=== PATIENT | female | born 1955 | race Caucasian/White ===

== ENCOUNTER 2016-12-27 21:19 | Emergency (ER) | payer BC ==
[~2016-12-27] VITALS: Ht 172.7 cm; Wt 85.3 kg
[~2016-12-27 21:19] MED LIST: BENADRYL25 MG PO; NEURONTIN100 MG PO; PREDNISONE5 MG PO; PRILOSEC20 MG PO; RESTASIS1 DROP OD; WELLBUTRIN100 MG NG; ZOVIRAX400 MG PO
[2016-12-27] MEDS ORDERED: ZANTAC300 MG PO (21:44)
[2016-12-27] MEDS ORDERED: MULTIVITAMINS1 EAC7 PO (21:44)
[2016-12-27] MEDS ORDERED: VITAMIN D2000 UNIT PO (21:45)
[2016-12-27] MEDS ORDERED: LEVOTHYROXINE0.5 GM MISC (21:46)
== END 2016-12-27 23:36 | disposition home or self-care (01) ==
LOC: ED 21:19
DX: R20.2 Paresthesia of skin (principal); K21.9 Gastro-esophageal reflux disease without esophagitis; Z90.710 Acquired absence of both cervix and uterus; Z98.890 Other specified postprocedural states; F41.9 Anxiety disorder, unspecified; Z79.899 Other long term (current) drug therapy
CPT/HCPCS: 80053; 85025; 99283

== ENCOUNTER 2018-05-23 21:53 | Emergency (ER) | payer OTHER ==
[~2018-05-23] VITALS: Ht 172.7 cm; Wt 88.9 kg
--- OUTSIDE RECORDS SUMMARY | ~2018-05-23 | XMS | Clinical Summary ---
Demographics + + + | Address | [address] | | | [place] [address] | + + + | Home Phone | | + + + | Preferred Language | Unknown | + + + | Marital Status | | + + + | Hoahaoism Affiliation | Unknown | + + + | Race | White | + + + | Ethnic Group | Not or | + + + Author + + + | Author | [facility] | + + + | Organization | [facility] | + + + | Address | Unknown | + + + | Phone | Unavailable | + + + Support + + + + + | Name | Relationship | Address | Phone | + + + + + | BONNY HELMS | ECON | [address] | | | | | [place] | | | | | [address] | | + + + + + Care Team Providers + +------+ + | Care Orthopaedic Nurse Name | Role | Phone | + +------+ + | Luke Guadarrama MD | PP | | + +------+ + Source Comments CORAZON is fully live on both [facility] and [facility] Allergies Not on File Current Medications + + +-------+---------+------+------+-------+ | Prescription | Sig. | Disp. | Refills | Star | End | Statu | | | | | | t | Date | s | | | | | | Date | | | + + +-------+---------+------+------+-------+ | OMEPRAZOLE | Take by mouth. | | | | | Activ | | (PRILOSEC ORAL) | | | | | | e | + + +-------+---------+------+------+-------+ | MULTIVITAMIN ORAL | Take by mouth. | | | | | Activ | | | | | | | | e | + + +-------+---------+------+------+-------+ | | 1 drop as needed. | | | | | Activ | | carboxymethylcellulo | | | | | | e | | se 0.5 % ophthalmic | | | | | | | | dropperette | | | | | | | + + +-------+---------+------+------+-------+ | doxycycline | Take 100 mg by mouth | | | | | Activ | | hyclate 100 mg oral | every twelve hours. 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 | + + + Family History + + +------+ + | Medical History | Relation | Name | Comments | + + +------+ + | Amblyopia | Brother | | | + + +------+ + | Glaucoma | Father | | | + + +------+ + | Macular degeneration | Mother | | | + + +------+ + | Retinal detachment | Son | | | + + +------+ + | Glasses | | | | + + +------+ + + +------+--------+ + | Relation | Name | Status | Comments | + +------+--------+ + | Brother | | | | + +------+--------+ + | Father | | | | + +------+--------+ + | Mother | | | | + +------+--------+ + | Son | | | | + +------+--------+ + Social History + +-------+ +--------+------+ | Tobacco Use | Types | Packs/Day | Years | Date | | | | | Used | | + +-------+ +--------+------+ | Former Smoker | | | | | + +-------+ +--------+------+ + + + | Sex Assigned at | Date Recorded | | | | + + + | Not on file | | + + + Plan of Treatment + + + + + | Health Maintenance | Due Date | Last Done | Comments | + + + + + | Influenza (Flu) | | | | | vaccination (#1) | 8 | | | + + + + + Results Not on filefrom Last 3 Months Insurance +-------+--------+ +------+ + + | Payer | Benefi | Subscriber | Type | Phone | Address | | | t Plan | ID | | | | | | / | | | | | | | Group | | | | | +-------+--------+ +------+ + + | MODA | MODA | xxxxxxxxx | PPO | [phone]- | [address] [address] | | | [place] | | | [phone] | [place] [address] | | | [place] | | | | | +-------+--------+ +------+ + + + +--------+ +--------+ + + | Guarantor Name | Accoun | Relation to | Date | Phone | Billing Address | | | t Type | Patient | of | | | | | | | | | | + +--------+ +--------+ + + | NORA HELMS | Person | Self [birth year] | Home: | [address] | | | al/Fam | | 1956 | [phone] | [place] [address] | | | katja | | | [phone] | | + +--------+ +--------+ + +"
--- OUTSIDE RECORDS SUMMARY | ~2018-05-23 | XMS | Clinical Summary ---
Demographics + + + | Address | [address] | | | [place] [address] | + + + | Home Phone | | + + + | Preferred Language | Unknown | + + + | Marital Status | | + + + | Sabianism Affiliation | Unknown | + + + | Race | Unknown | + + + | Ethnic Group | Unknown | + + + Author + + + | Author | [facility] | | | and [place] | + + + | Organization | [facility] | | | and [place] | + + + | Address | Unknown | + + + | Phone | Unavailable | + + + Care Team Providers + +------+ + | Care Gambreler Helper Name | Role | Phone | + +------+ + PP | Unavailable | + +------+ + Allergies No Known Allergies Medications + + + +---------+------+------+-------+ | Medication | Sig | Dispensed | Refills | Star | End | Statu | | | | | | t | Date | s | | | | | | Date | | | + + + +---------+------+------+-------+ | Cholecalciferol | Take 2,000 Units by | | 0 | 09/1 | | Activ | | (VITAMIN D3) 2000 | mouth Daily. | | | 4/20 | | e | | UNITS CAPS | | | | 12 | | | + + + +---------+------+------+-------+ | diphenhydrAMINE | Take 2 capsules by | | 0 | 09/1 | | Activ | | (BENADRYL ALLERGY) | mouth 4 to 5 times a | | | 4/20 | | e | | 25 MG capsule | week | | | 12 | | | + + + +---------+------+------+-------+ | omeprazole | Take 3 capsules once | | 0 | 09/1 | | Activ | | (PRILOSEC) 20 mg | daily | | | 4/20 | | e | | capsule | | | | 12 | | | + + + +---------+------+------+-------+ | Alum Hydroxide-Mag | CHEW Chew 2 tablets | | 0 | 09/1 | | Activ | | Carbonate (GAVISCON | as needed | | | 4/20 | | e | | PO) | | | | 12 | | | + + + +---------+------+------+-------+ Active Problems + + + | Problem | Noted Date | + + + | GASTROESOPHAGEAL REFLUX DISEASE | | + + + | Chest pain | | + + + + + | Overview: JUNE [id number] Decision | + + +---------+---+ | ANXIETY | | +---------+---+ Social History + +-------+ +--------+------+ | Tobacco [...] | + + Last Filed Vital Signs + + + + | Vital Sign | Reading | Time Taken | + + + + | Blood Pressure | 118/78 | 05/25/2011 0000 PDT | + + + + | Pulse | - | - | + + + + | Temperature | - | - | + + + + | Respiratory Rate | - | - | + + + + | Oxygen Saturation | - | - | + + + + | Inhaled Oxygen | - | - | | Concentration | | | + + + + | Weight | - | - | + + + + | Height | 172.7 cm (5' 8") | 05/25/2011 0000 PDT | + + + + | Body Mass Index | - | - | + + + + Plan of Treatment + + + + + | Health Maintenance | Due Date | Last Done | Comments | + + + + + | Vaccine: | | | | | Dtap/Tdap/Td (1 - | 3 | | | | Tdap) | | | | + + + + + | Cervical Cancer | | | | | Screening (Pap) | 4 | | | + + + + + | Vaccine: Zoster (1 | | | | | of 2) | 4 | | | + + + + + | Vaccine: Influenza | | | | | (Season Ended) | 9 | | | + + + + + Results Not on filefrom Last 3 Months
--- OUTSIDE RECORDS SUMMARY | ~2018-05-23 | XMS | Clinical Summary ---
Demographics + + + | Address | [address] | | | [place] [address] | + + + | Home Phone | | + + + | Preferred Language | Unknown | + + + | Marital Status | | + + + | Pentecostal Affiliation | Unknown | + + + | Race | White | + + + | Ethnic Group | Not or | + + + Author + + + | Author | [facility] | + + + | Organization | [facility] | + + + | Address | Unknown | + + + | Phone | Unavailable | + + + Support + + + + + | Name | Relationship | Address | Phone | + + + + + | BONNY HELMS | ECON | [address] | | | | | [place] | | | | | [address] | | + + + + + Care Team Providers + +------+ + | Care Bus Greaser Name | Role | Phone | + +------+ + | Luke Guadarrama MD | PP | | + +------+ + Source Comments CORAZON is fully live on both [facility] and [facility] InPatient.[facility] Allergies Not on File Current Medications + [...] [phone] | PPO | +1- | [address] [address] | | | [place] | | | [phone] | [place] [address] | | | [place] | | | [...] | 1956 | [phone] | [place] [address] | | | katja | | | [phone] | | + +--------+ +--------+ + +"
--- OUTSIDE RECORDS SUMMARY | ~2018-05-23 | XMS | Clinical Summary ---
Demographics + + + | Address | [address] | | | [place] [address] | + + + | Home Phone | | + + + | Preferred Language | Unknown | + + + | Marital Status | | + + + | Judaism Affiliation | Unknown | + + + | Race | Unknown | + + + | Ethnic Group | Unknown | + + + Author + + + | Author | [facility] | | | and [place] | + + + | Organization | [facility] | | | and [place] | + + + | Address | Unknown | + + + | Phone | Unavailable | + + + Care Team Providers + +------+ + | Care Eyeglass Frame Truer Name | Role | Phone | + [...] + + + + | Overview: JUNE [id number] Decision | + + +---------+---+ | ANXIETY [...]
[~2018-05-23 21:53] MED LIST changes: +CALCIUM + VITA1 EAC2 PO; +LEVOTHYROXINE0.5 GM MISC; +LEVOTHYROXINE50 MCG PO; +MULTIVITAMINS1 EAC7 PO; +NEXIUM20 MG PO; +VITAMIN D2000 UNIT PO; +ZANTAC300 MG PO
[2018-05-23] MEDS ORDERED: DEXILANT60 MG PO (22:06)
== END 2018-05-23 23:38 | disposition home or self-care (01) ==
LOC: ED 21:53
DX: S80.02XA Contusion of left knee, initial encounter (principal); W01.198A Fall on same level from slipping, tripping and stumbling with subsequent striking against other object, initial encounter; K21.9 Gastro-esophageal reflux disease without esophagitis; F41.9 Anxiety disorder, unspecified; Z79.899 Other long term (current) drug therapy
CPT/HCPCS: 99283

== ENCOUNTER 2019-09-08 10:23 | Emergency (ER) | payer MEDICARE, OTHER ==
[~2019-09-08] VITALS: Ht 172.7 cm; Wt 88.9 kg
--- OUTSIDE RECORDS SUMMARY | ~2019-09-08 | XMS | Clinical Summary ---
Demographics + + + | Address | [address] | | | [place] [address] | + + + | Home Phone | | + + + | Preferred Language | Unknown | + + + | Marital Status | | + + + | Quaker Affiliation | Unknown | + + + | Race | White | + + + | Ethnic Group | Not or | + + + Author + + + | Author | [facility] | + + + | Organization | [facility] | + + + | Address | Unknown | + + + | Phone | Unavailable | + + + Support + + + + + | Name | Relationship | Address | Phone | + + + + + | Isidro Barth | ECON | [address] | | | | | [place] | | | | | [address] | | + + + + + Care Team Providers + +------+ + | Care Front End Software Engineer Name | Role | Phone | + +------+ + | Luke Guadarrama MD | PCP | | + +------+ + Source Comments CORAZON is fully live on both [facility] and [facility] InPatient.[facility] Allergies Not on File Medications + + + +---------+------+------+-------+ | Medication | Sig | Dispensed | Refills | Star | End | Statu | | | | | | t | Date | s | | | | | | Date | | | + + + +---------+------+------+-------+ | OMEPRAZOLE | Take by mouth. | | 0 | | | Activ | | (PRILOSEC ORAL) | | | | | | e | + + + +---------+------+------+-------+ | MULTIVITAMIN ORAL | Take by mouth. | | 0 | | | Activ | | | | | | | | e | + + + +---------+------+------+-------+ | | 1 drop as needed. | | 0 | | | Activ | | carboxymethylcellulo | | | | | | e | | se 0.5 % ophthalmic | | | | | | | | dropperette | | | | | | | + + + +---------+------+------+-------+ | doxycycline | Take 100 mg by mouth | | 0 | | | Activ | | hyclate 100 mg oral | every twelve hours. | | | | | e | | tablet | | | | | | | + + + +---------+------+------+-------+ Active Problems + + + | Problem [...] | | + +-------+ +--------+------+ + + +---------+ + | Alcohol Use | Drinks/Week | oz/Week | Comments | + + +---------+ + | Not Asked | | | | + + +---------+ + + + + | Sex Assigned at | Date Recorded | | | | + + + | Not on file | | + + + + + + + | Job Start Date | Occupation | Industry | + + + + | Not on file | Not on file | Not on file | + + + + + + + + | Travel History | Travel Start | Travel End | + + + + + + | No recent travel history available. | + + Last Filed Vital Signs Not on file Plan of Treatment + + + + + | Health Maintenance | Due Date | Last Done | Comments | + + + + + | Pneumococcal | | | | | vaccination (1 of 2 | 9 | | | | - PCV13) | | | | + + + + + | Influenza (Flu) | | | | | vaccination (#1) | 9 | | | + + + + + Results Not on filefrom Last 3 Months Insurance +-------+--------+ +--------+ + +------+ | Payer | Benefi | Subscriber | Effect | Phone | Address | Type | | | t Plan | ID | heidi | | | | | | / | | Dates | | | | | | Group | | | | | | +-------+--------+ +--------+ + +------+ | MODA | MODA | xxxxxxxxx | 02/13/19 | [phone] | [address] | PPO | | | [place] | | 14-Pre | 4 | [address] | | | | [place] | | sent | | [place], | | | | | | | | [place] [address] | | +-------+--------+ +--------+ + +------+ + +--------+ +--------+ + + | Guarantor Name | Accoun | Relation to | Date | Phone | Billing Address | | | t Type | Patient | of | | | | | | | | | | + +--------+ +--------+ + + | Nora Barth | Person | Self | [birth year] | [address] | | | al/Fam | | 1956 | [phone] | [place] [address] | | | katja | | | 9 (Home) | | + +--------+ +--------+ + +"
--- OUTSIDE RECORDS SUMMARY | ~2019-09-08 | XMS | Encounter Summary ---
Demographics + + + | Address | [address] | | | [place] [address] | + + + | Home Phone | | + + + | Preferred Language | Unknown | + + + | Marital Status | | + + + | Episcopalian Affiliation | Unknown | + + + | Race | White | + + + | Ethnic Group | Not or | + + + Author + + + | Author | [facility] | + + + | Organization | [facility] | + + + | Address | Unknown | + + + | Phone | Unavailable | + + + Support + + + + + | Name | Relationship | Address | Phone | + + + + + | Isidro Barth | ECON | [address] | | | | | [place] | | | | | [address] | | + + + + + Care Team Providers + +------+ + | Care Punch Operator Name | Role | Phone | + +------+ + | Luke Guadarrama MD | PCP | | + +------+ + Reason for Visit + + + | Reason | Comments | + + + | Comprehensive eye | | | examination | | + + + Encounter Details +--------+---------+ + + + | Date | Type | Department | Care Team | Description | +--------+---------+ + + + | 03/06/ | Office | [facility] | Chas Cat | Ocular rosacea | | 2013 | Visit | [facility]/Ophthalmol | MD Farzana | (Primary Dx) | | | | [facility] at [facility] [address] | | | | | | [address] [facility] | | | | | | [facility] and Healing, | | | | | | Building | | | | | | Floor [place], [place] | | | | | | [address] | | | | | | [phone] | | | +--------+---------+ + + + Social History + +-------+ +--------+------+ | [...] recent travel history available. | + + documented as of this encounter Progress Notes Luke Blank MD - 03/06/2013 11:02 AM PSTAttending Physician Statement: I reviewed chart notes under general supervision of resident, but did not personally examine this patient. Cosigning only. Chas Leahy MD - 03/06/2013 9:54 AM PST COMPREHENSIVE OPHTHALMOLOGY PROGRESS NOTE 03/06/2013 HPI: 57 y.o. year old female from [place] : Patient presents with: Comprehensive eye examination Eyes are red and irritated. Had tear duct plugs inserted last week by [place] doctor. Eyes aren't burning now, but are still red. Had red eyes after having plugs inserted. Use s Refresh eye drops. Has had 2 subconjunctival hemes in the past. Has had some small ones in the corners since November or so. Has had once in each eye after insertion of the plugs. Has been using a tobramycin and dexamethasone drop OU for the past week or so, once to [facility] e a day. Tobacco use: reports that she has quit smoking. She does not have any smokeless tobacco hi story on file. Primary Care Provider: Carrol Guadarrama MD Past ocular history: No specialty comments on file. Family ocular history: family history includes Amblyopia in her brother; Glaucoma in her father; Macular degenerat ion in her mother; and Retinal detachment in her son. See scanned intake form for full Family ocular and medical history. Allergies: has no allergies on file. Medications: Current Outpatient Prescriptions (Ophthalmic Medications) Medication Sig carboxymethylcellulose 1 drop as needed. Current Outpatient Prescriptions (Other) Medication Sig doxycycline hyclate Take 100 mg by mouth every twelve hours. MULTIVITAMIN ORAL Take by mouth. OMEPRAZOLE (PRILOSEC ORAL) Take by mouth. Medical history/PMH/Review of systems: There is no problem list on file for this patient. Past Medical History Diagnosis Date GERD (gastroesophageal reflux disease) Scleritis History of blood transfusion Hiatal hernia with gangrene UTI (lower urinary tract infection) H/O subconjunctival hemorrhage has past surgical history that includes caesarean section; hysterectomy; and tonsillectomy . Reviewed systems for: fever, wt. loss, ENT, cardiovascular, pulmonary, GI, urinary, neurolo gic, endocrine, bleeding/blood disorders, AIDS/HIV, cancer/tumors, arthritis - all were nega tive except as noted above. EXAMINATION: Base Exam Visual Acuity Right Left Dist cc 20/20-3 20/20-1 Method: Snellen - Linear Tonometry Right Left Pressure 24 24 Method: Applanation Time: 10:07 AM Dilation Both eyes: 1.0% Mydriacyl @ 10:10 AM Pupils Pupils Right PERRL Left PERRL Visual Prakash Left Right Result Full Full Extraocular Movement Right Left Result Full Full Slit Lamp and Fundus Exam External Exam Right Left External Normal Normal Slit Lamp Exam Right Left Lids/Lashes MGD, scurf, telang MGD, scurf, telang Conjunctiva/Sclera Temporal and nasal ping. No plugs seen Temporal and nasal ping, no plug s seen. One tortuous vessel nasally Cornea All layers clear All layers clear Anterior Chamber Deep and quiet Deep and quiet Iris Normal Normal Lens Clear Clear Vitreous Normal Normal Fundus Exam Right Left Disc Normal; full but crisp rim Normal; full but crisp rim C/D Ratio 0.1 0.1 Macula Normal, few tiny drusen Normal, few tiny drusen Vessels Normal Normal Periphery Normal, clump of pigment along a temporal vessel. Scattered small drusen Normal, scattered small drusen ITEVIN, performed, reviewed or revised the above history, medications, allergies, as well as performed elements noted in the Base Ophthalmology Exam, such as visual acuity, pupils, EOMs, CVF and IOP. See [facility] ophthalmology module for exam information. Impression: Ocular rosacea, OU. History of dry eye, irritation, redness. Recently had plugs placed wh ich I do not see today. -Currently managed with artificial tears; she has also used some tobradex drops intermitten tly -Intermittently becomes very red, annetta nasally over the pinguecula Pinguecula, OU. Intermittently inflamed, she is concerned by the redness -Reassurance as to the benign nature of these -Continue tears Mildly elevated IOP today -No suspicious discs -Possibly slightly elevated due to recent steroid use -Unsure what her baseline IOP is Plan: Hot compresses BID to QID preservative-free artificial tears 4-6 times daily Could ultimately try doxy if no improvement Discontinue Tobradex Follow up 4-6 weeks to check IOP, non-dilated Chas Cat MD Ophthalmology Resident [facility] Attending of record for this encounter is Dr. Luke Blank MD documented in this encounter Plan of Treatment Not on filedocumented as of this encounter Visit Diagnoses + + | Diagnosis | + + | Ocular rosacea - Primary Rosacea | + + documented in this encounter"
--- OUTSIDE RECORDS SUMMARY | ~2019-09-08 | XMS | Encounter Summary ---
Demographics + + + | Address | [address] | | | [place] [address] | + + + | Home Phone | | + + + | Preferred Language | Unknown | + + + | Marital Status | | + + + | Temple Affiliation | Unknown | + + + | Race | Unknown | + + + | Ethnic Group | Unknown | + + + Author + + + | Author | [facility] | | | and [place] | + + + | Organization | [facility] | | | and [place] | + + + | Address | Unknown | + + + | Phone | Unavailable | + + + Care Team Providers + +------+ + | Care Lecturer Of Portuguese Name | Role | Phone | + +------+ + PCP | Unavailable | + +------+ + Encounter Details +--------+ + + + + | Date | Type | Department | Care Team | Description | +--------+ + + + + | 05/13/ | Imaging | [facility] | Provider, | | | 2020 | Exam | [facility] | MD [address] | | | | | IMAGING [address] | [address] | | | | | [address] | [place] [address] | | | | | [place] [address] | | | | | | [phone] | | | +--------+ + + + [...] Not on filedocumented as of this encounter Procedures + +--------+ + + + | Procedure Name | Priori | Date/Time | Associated Diagnosis | Comments | | | ty | | | | + +--------+ + + + | DORENE DIGITAL | Routin | 03/21/2018 | | Results for this | | SCREENING BILATERAL | e | 12:00 AM | | procedure are in the | | | | PST | | results section. | + +--------+ + + + documented in this encounter Results DORENE Digital Screening Bilateral (03/21/2018 12:00 AM PST) + + | Specimen | + + | | + + + + + | Narrative | Performed At | + + + | External films for comparison only | [facility] | | | | | No results will be in the chart. | | + + + + +---------+ + + | Performing | Address | City/State/Zipcode | Phone Number | | Organization | | | | + +---------+ + + | [facility] | | | | + +---------+ + + documented in this encounter Visit Diagnoses Not on filedocumented in this encounter"
--- OUTSIDE RECORDS SUMMARY | ~2019-09-08 | XMS | Encounter Summary ---
Demographics + + + | Address | [address] | | | [place] [address] | + + + | Home Phone | | + + + | Preferred Language | Unknown | + + + | Marital Status | | + + + | Anglican Affiliation | Unknown | + + + | Race | Unknown | + + + | Ethnic Group | Unknown | + + + Author + + + | Author | [facility] | | | and [place] | + + + | Organization | [facility] | | | and [place] | + + + | Address | Unknown | + + + | Phone | Unavailable | + + + Care Team Providers + +------+ + | Care Chin Strap Sewer Name | Role | Phone | + [...] | | | | [address] | [place] [address] | | | | | [place] [address] | | | | | | [phone] | | | +--------+ + + + [...] + | DORENE DIGITAL | Routin | 03/13/2017 | | Results for this | | SCREENING BILATERAL | e | 12:00 AM | | procedure are in the | | | | PST | | results section. | + +--------+ + + + documented in this encounter Results DOERNE Digital Screening Bilateral (03/13/2017 12:00 AM PST) + + | Specimen [...]
--- OUTSIDE RECORDS SUMMARY | ~2019-09-08 | XMS | Encounter Summary ---
Demographics + + + | Address | [address] | | | [place] [address] | + + + | Home Phone | | + + + | Preferred Language | Unknown | + + + | Marital Status | | + + + | Baptist Affiliation | Unknown | + + + | Race | Unknown | + + + | Ethnic Group | Unknown | + + + Author + + + | Author | [facility] | | | and [place] | + + + | Organization | [facility] | | | and [place] | + + + | Address | Unknown | + + + | Phone | Unavailable | + + + Care Team Providers + +------+ + | Care Scrubbing Machine Operator Name | Role | Phone | + +------+ + PCP | Unavailable | + +------+ + Encounter Details +--------+ + + + + | Date | Type | Department | Care Team | Description | +--------+ + + + + | 06/19/ | Hospital | [facility] | Paul Poole, | | | 1997 - | Encounter | [facility] | MD [address] [place] [address] | | | | | [facility] [address] | [address] | | | 06/22/ | | Merrick Dejesus, | [place] [address] | | | 1997 | | [place] [address] | [phone] | | | | | [phone] | | | +--------+ + + + [...]
--- OUTSIDE RECORDS SUMMARY | ~2019-09-08 | XMS | Clinical Summary ---
Demographics + + + | Address | [address] | | | [place] [address] | + + + | Home Phone | | + + + | Preferred Language | Unknown | + + + | Marital Status | | + + + | Confucianism Affiliation | Unknown | + + + | Race | White | + + + | Ethnic Group | Not or | + + + Author + + + | Author | [facility] | + + + | Organization | [facility] | + + + | Address | Unknown | + + + | Phone | Unavailable | + + + Support + + + + + | Name | Relationship | Address | Phone | + + + + + | Isidro Barth | ECON | [address] | | | | | [place] | | | | | [address] | | + + + + + Care Team Providers + +------+ + | Care Application Developer Name | Role | Phone | + +------+ + | Luke Guadarrama MD | PCP | | + +------+ + Source Comments CORAZON is fully live on both [facility] and [facility] InPatient.[facility] Allergies Not on File Medications + [...] [place] | | [address] | [address] | [address] | | | | [place] | | sent | | [place], | | | | | | | | [place] [address] | | +-------+--------+ +--------+ + +------+ + [...] | 1956 | [phone] | [place] [address] | | | katja | | | 9 (Home) | | + +--------+ +--------+ + +"
--- OUTSIDE RECORDS SUMMARY | ~2019-09-08 | XMS | Encounter Summary ---
Demographics + + + | Address | [address] | | | [place] [address] | + + + | Home Phone | | + + + | Preferred Language | Unknown | + + + | Marital Status | | + + + | Taoist Affiliation | Unknown | + + + | Race | Unknown | + + + | Ethnic Group | Unknown | + + + Author + + + | Author | [facility] | | | and [place] | + + + | Organization | [facility] | | | and [place] | + + + | Address | Unknown | + + + | Phone | Unavailable | + + + Care Team Providers + +------+ + | Care Clothing Sales Assistant Name | Role | Phone | + +------+ + PCP | Unavailable | + +------+ + Encounter Details +--------+ + + + + | Date | Type | Department | Care Team | Description | +--------+ + + + + | 10/26/ | Abstract | [facility] | [facility] | | | 2011 | | Conversion Location | SR | | | | | [address] [facility] [address] | | | | | | [place], [place] | | | | | | [address] | | | | | | [phone] | | | +--------+ + + + [...] + + documented as of this encounter Last Filed Vital Signs + + + + + | Vital Sign | Reading | Time Taken | Comments | + + + + + | Blood Pressure | 118/78 | 05/25/2011 12:00 AM | | | | | PDT | | + + + + + | Pulse | - | - | | + + + + + | Temperature | - | - | | + + + + + | Respiratory Rate | - | - | | + + + + + | Oxygen Saturation | - | - | | + + + + + | Inhaled Oxygen | - | - | | | Concentration | | | | + + + + + | Weight | - | - | | + + + + + | Height | 172.7 cm (5' 8") | 05/25/2011 12:00 AM | | | | | PDT | | + + + + + | Body Mass Index | - | - | | + + + + + documented in this encounter Plan of Treatment Not on filedocumented as of this encounter Visit Diagnoses Not on filedocumented in this encounter
--- OUTSIDE RECORDS SUMMARY | ~2019-09-08 | XMS | Encounter Summary ---
Demographics + + + | Address | [address] | | | [place] [address] | + + + | Home Phone | | + + + | Preferred Language | Unknown | + + + | Marital Status | | + + + | Sabianism Affiliation | Unknown | + + + | Race | Unknown | + + + | Ethnic Group | Unknown | + + + Author + + + | Author | [facility] | | | and [place] | + + + | Organization | [facility] | | | and [place] | + + + | Address | Unknown | + + + | Phone | Unavailable | + + + Care Team Providers + +------+ + | Care Paper Products Supervisor Name | Role | Phone | + +------+ + PCP | Unavailable | + +------+ + Encounter Details +--------+ + + + + | Date | Type | Department | Care Team | Description | +--------+ + + + + | 03/27/ | Hospital | [facility] | | | | 2006 | Encounter | MED CTR EMERGENCY | | | | | | CENTER [address] | | | | | | [place] | | | | | | [address] | | | | | | [phone] | | | +--------+ + + + [...]
--- OUTSIDE RECORDS SUMMARY | ~2019-09-08 | XMS | Encounter Summary ---
Demographics + + + | Address | [address] | | | [place] [address] | + + + | Home Phone | | + + + | Preferred Language | Unknown | + + + | Marital Status | | + + + | Holiness Affiliation | Unknown | + + + | Race | White | + + + | Ethnic Group | Not or | + + + Author + + + | Author | [facility] | + + + | Organization | [facility] | + + + | Address | Unknown | + + + | Phone | Unavailable | + + + Support + + + + + | Name | Relationship | Address | Phone | + + + + + | Isidro Barth | ECON | [address] | | | | | [place] | | | | | [address] | | + + + + + Care Team Providers + +------+ + | Care Tip Printer Name | Role | Phone | + [...] rosacea | | 2013 | Visit | [place]/Ophthalmol | MD Farzana | (Primary Dx) | | | | blakey at [facility] [address] | | | | | | [address] [facility] for | | | | | | Health and Healing, | | | | | | Building | | | | | | Floor [place], [place] | | | | | | [address] | | | | | | [phone] | | | +--------+---------+ + + + [...] HPI: 57 y.o. year old female from [place] : Patient presents with: Comprehensive eye examination Eyes are red and irritated. Had tear duct plugs inserted last week by [place] doctor. Eyes aren't burning now, but are [...] the past week or so, once to [facility] e a day. Tobacco use: reports that [...] acuity, pupils, EOMs, CVF and IOP. See [facility] ophthalmology module for exam information. Impression: [...] IOP, non-dilated Chas Cat MD Ophthalmology Resident [facility] Attending of record for this encounter is Dr. Luke Blank MD documented in this encounter Plan of Treatment Not on filedocumented as of this encounter Visit Diagnoses + + | Diagnosis | + + | Ocular rosacea - Primary Rosacea | + + documented in this encounter"
--- OUTSIDE RECORDS SUMMARY | ~2019-09-08 | XMS | Clinical Summary ---
Demographics + + + | Address | [address] | | | [place] [address] | + + + | Home Phone | | + + + | Preferred Language | Unknown | + + + | Marital Status | | + + + | Buddhist Affiliation | Unknown | + + + | Race | Unknown | + + + | Ethnic Group | Unknown | + + + Author + + + | Author | [facility] | | | and [place] | + + + | Organization | [facility] | | | and [place] | + + + | Address | Unknown | + + + | Phone | Unavailable | + + + Care Team Providers + +------+ + | Care Assembler Clip On Sunglasses Name | Role | Phone | + +------+ + PCP | Unavailable | + +------+ + Allergies [...] + + + + + | Overview: VIKFlorinda [id number] Decision | + + +---------+---+ | ANXIETY [...] on file | | + + + Last Filed Vital Signs + [...] | | + + + + + Plan of Treatment + + + + + | Health Maintenance | Due Date | Last | Comments | | | | Done | | + + + + + | Vaccine: Zoster (2 | | 11/08/19 | | | of 3) | 4 | 14 | | + + + + + | Vaccine: | | | | | Pneumococcal 65+ (1 | 9 | | | | of 1 - PPSV23) | | | | + + + + + | Vaccine: Influenza | | 12/04/19 | | | (#1) | 0 | 19, | | | | | 12/26/19 | | | | | 18, | | | | | 03/07/19 | | | | | 18, | | | | | Addition | | | | | al | | | | | history | | | | | exists | | + + + + + | Breast Cancer | | 03/21/19 | | | Screening | 1 | 19, | | | | | 03/13/19 | | | | | 18, | | | | | 06/11/19 | | | | | 17 | | + + + + + | Vaccine: | | 03/03/19 | | | Dtap/Tdap/Td (3 - | 7 | 17, | | | Td) | | 10/15/20 | | | | | 12 | | + + + + + Results Not on filefrom Last 3 Months Advance Directives + + + + + | Type | Date Recorded | Patient | Explanation | | | | 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
--- OUTSIDE RECORDS SUMMARY | ~2019-09-08 | XMS | Encounter Summary ---
Demographics + + + | Address | [address] | | | [place] [address] | + + + | Home Phone | | + + + | Preferred Language | Unknown | + + + | Marital Status | | + + + | Jew Affiliation | Unknown | + + + | Race | Unknown | + + + | Ethnic Group | Unknown | + + + Author + + + | Author | [facility] | | | and [place] | + + + | Organization | [facility] | | | and [place] | + + + | Address | Unknown | + + + | Phone | Unavailable | + + + Care Team Providers + +------+ + | Care Scouring Pads Supervisor Name | Role | Phone | + +------+ + PCP | Unavailable | + +------+ + Encounter Details +--------+ + + + + | Date | Type | Department | Care Team | Description | +--------+ + + + + | 05/14/ | Imaging | [facility] | Provider, | | | 2020 | Exam | MED CTR EXTERNAL | MD Navin [address] | | | | | IMAGING [address] | [address] | | | | | [address] | [place] [address] | | | | | [place] [address] | | | | | | [phone] | | | +--------+ + + + [...] + | DORENE DIGITAL | Routin | 06/10/2016 | | Results for this | | SCREENING BILATERAL | e | 12:00 AM | | procedure are in the | | | | PDT | | results section. | + +--------+ + + + documented in this encounter Results DORENE Digital Screening Bilateral (06/10/2016 12:00 AM PDT) + + | Specimen | + + [...]
--- OUTSIDE RECORDS SUMMARY | ~2019-09-08 | XMS | Encounter Summary ---
Demographics + + + | Address | [address] | | | [place] [address] | + + + | Home Phone | | + + + | Preferred Language | Unknown | + + + | Marital Status | | + + + | Synagogue Affiliation | Unknown | + + + | Race | Unknown | + + + | Ethnic Group | Unknown | + + + Author + + + | Author | [facility] | | | and [place] | + + + | Organization | [facility] | | | and [place] | + + + | Address | Unknown | + + + | Phone | Unavailable | + + + Care Team Providers + +------+ + | Care Control Inspector Name | Role | Phone | + +------+ + PCP | Unavailable | + +------+ + Encounter Details +--------+ + + + + | Date | Type | Department | Care Team | Description | +--------+ + + + + | 03/10/ | Hospital | [facility] | Paul Poole, | | | 1997 | Encounter | MED CTR MP INTRA OP | MD [address] [place] [address] | | | | | [address] | [address] | | | | | [place], [place] | [place] [address] | | | | | [address] | [phone] | | | | | [phone] | | | +--------+ + + + [...]
[~2019-09-08 10:23] MED LIST changes: +DEXILANT60 MG PO
[2019-09-08] MEDS ORDERED: NEXIUM20 MG PO (10:41)
[2019-09-08] MEDS ORDERED: PEPCID20 MG PO (10:42)
== END 2019-09-08 14:35 | disposition home or self-care (01) ==
LOC: ED 10:23
DX: R10.9 Unspecified abdominal pain (principal); K21.9 Gastro-esophageal reflux disease without esophagitis; F41.9 Anxiety disorder, unspecified; E03.9 Hypothyroidism, unspecified; Z79.899 Other long term (current) drug therapy
CPT/HCPCS: 74177; 80053; 81001; 83690; 85025; 96374; 99285-25; J2405; Q9967

== ENCOUNTER 2019-09-28 07:53 | Emergency (ER) | payer MEDICARE, OTHER ==
[~2019-09-28] VITALS: Ht 172.7 cm; Wt 89.8 kg
--- OUTSIDE RECORDS SUMMARY | ~2019-09-28 | XMS | Encounter Summary ---
Demographics + + + | Address | [address] | | | [place] [address] | + + + | Home Phone | | + + + | Preferred Language | Unknown | + + + | Marital Status | | + + + | Jain Affiliation | Unknown | + + + | Race | Unknown | + + + | Ethnic Group | Unknown | + + + Author + + + | Author | [facility] | | | and [place] | + + + | Organization | [facility] | | | and [place] | + + + | Address | Unknown | + + + | Phone | Unavailable | + + + Care Team Providers + +------+ + | Care Senior Training Specialist Name | Role | Phone | + +------+ + PCP | Unavailable | + +------+ + Encounter Details +--------+ + + + + | Date | Type | Department | Care Team | Description | +--------+ + + + + | 03/10/ | Hospital | [facility] | Paul Poole, | | | 1997 | Encounter | MED CTR MP INTRA OP | MD [address] [place] [address] | | | | | [address] | [address] | | | | | [place], [place] | [place] [address] | | | | | [address] | [phone] | | | | | [phone] | | | +--------+ + + + + Social History + +-------+ +--------+------+ | Tobacco Use | Types | Packs/Day | Years | Date | | | | | Used | | + +-------+ +--------+------+ | Never Assessed | | | | | + +-------+ +--------+------+ + + + | Sex Assigned at | Date Recorded | | | | + + + | Not on file | | + + + documented as of this encounter Plan of Treatment Not on filedocumented as of this encounter Visit Diagnoses Not on filedocumented in this encounter"
--- OUTSIDE RECORDS SUMMARY | ~2019-09-28 | XMS | Encounter Summary ---
Demographics + + + | Address | [address] | | | [place] [address] | + + + | Home Phone | | + + + | Preferred Language | Unknown | + + + | Marital Status | | + + + | Taoism Affiliation | Unknown | + + + | Race | White | + + + | Ethnic Group | Not or | + + + Author + + + | Author | [facility] | + + + | Organization | [facility] | + + + | Address | Unknown | + + + | Phone | Unavailable | + + + Support + + + + + | Name | Relationship | Address | Phone | + + + + + | Isidro Barth | ECON | [address] | | | | | [place] | | | | | [address] | | + + + + + Care Team Providers + +------+ + | Care Bell Tier Name | Role | Phone | + [...] + + | 03/06/ | Office | [facility] | Chas Cat | Ocular rosacea | | 2013 | Visit | [place]/Ophthalmol | MD Farzana | (Primary Dx) | | | | blakey at [facility] [address] | | | | | | [address] [facility] for | | | | | | Health and Healing, | | | | | | Building | | | | | | Floor [place], [place] | | | | | | [address] | | | | | | [phone] | | | +--------+---------+ + + + [...] HPI: 57 y.o. year old female from [place] : Patient presents with: Comprehensive eye examination Eyes are red and irritated. Had tear duct plugs inserted last week by [place] doctor. Eyes aren't burning now, but are [...] the past week or so, once to [facility] e a day. Tobacco use: reports that [...] acuity, pupils, EOMs, CVF and IOP. See [facility] ophthalmology module for exam information. Impression: Ocular [...] IOP, non-dilated Chas Cat MD Ophthalmology Resident [facility] Attending of record for this encounter is Dr. Luke Blank MD documented in this encounter Plan of Treatment Not on filedocumented as of this encounter Visit Diagnoses + + | Diagnosis | + + | Ocular rosacea - Primary Rosacea | + + documented in this encounter"
--- OUTSIDE RECORDS SUMMARY | ~2019-09-28 | XMS | Encounter Summary ---
Demographics + + + | Address | [address] | | | [place] [address] | + + + | Home Phone | | + + + | Preferred Language | Unknown | + + + | Marital Status | | + + + | Shinto Affiliation | Unknown | + + + | Race | Unknown | + + + | Ethnic Group | Unknown | + + + Author + + + | Author | [facility] | | | and [place] | + + + | Organization | [facility] | | | and [place] | + + + | Address | Unknown | + + + | Phone | Unavailable | + + + Care Team Providers + +------+ + | Care Cvor Nurse Name | Role | Phone | + +------+ + PCP | Unavailable | + +------+ + Encounter Details +--------+ + + + + | Date | Type | Department | Care Team | Description | +--------+ + + + + | 03/27/ | Hospital | [facility] | | | | 2006 | Encounter | MED CTR EMERGENCY | | | | | | CENTER [address] | | | | | | [place] | | | | | | [address] | | | | | | [phone] | | | +--------+ + + + [...]
--- OUTSIDE RECORDS SUMMARY | ~2019-09-28 | XMS | Clinical Summary ---
Demographics + + + | Address | [address] | | | [place] [address] | + + + | Home Phone | | + + + | Preferred Language | Unknown | + + + | Marital Status | | + + + | Confucianism Affiliation | Unknown | + + + | Race | White | + + + | Ethnic Group | Not or | + + + Author + + + | Author | [facility] | + + + | Organization | [facility] | + + + | Address | Unknown | + + + | Phone | Unavailable | + + + Support + + + + + | Name | Relationship | Address | Phone | + + + + + | Isidro Barth | ECON | [address] | | | | | [place] | | | | | [address] | | + + + + + Care Team Providers + +------+ + | Care Biomass Technician Name | Role | Phone | + +------+ + | Luke Guadarrama MD | PCP | | + +------+ + Source Comments CORAZON is fully live on both [facility] and [facility] InPatient.[facility] Allergies Not on File Medications + + [...] CONNEX | | 14-Pre | 4 | [address] | | | | [place] | | sent | | [place], | | | | | | | | [place] [address] | | +-------+--------+ +--------+ + +------+ + [...] | 1956 | [phone] | [place] [address] | | | katja | | | 9 (Home) | | + +--------+ +--------+ + +"
--- OUTSIDE RECORDS SUMMARY | ~2019-09-28 | XMS | Clinical Summary ---
Demographics + + + | Address | [address] | | | [place] [address] | + + + | Home Phone | | + + + | Preferred Language | Unknown | + + + | Marital Status | | + + + | Rastafarian Affiliation | Unknown | + + + | Race | White | + + + | Ethnic Group | Not or | + + + Author + + + | Author | [facility] | + + + | Organization | [facility] | + + + | Address | Unknown | + + + | Phone | Unavailable | + + + Support + + + + + | Name | Relationship | Address | Phone | + + + + + | Isidro Barth | ECON | [address] | | | | | [place] | | | | | [address] | | + + + + + Care Team Providers + +------+ + | Care Forms Designer Name | Role | Phone | + +------+ + | Luke Guadarrama MD | PCP | | + +------+ + Source Comments CORAZON is fully live on both [facility] Ambulatory and [facility] InPatient.[facility] Allergies Not on File Medications [...] [place]NEX | | 14-Pre | 4 | [address] | | | | [place] | | sent | | [place], | | | | | | | | [place] [address] | | +-------+--------+ +--------+ + +------+ + [...] | 1956 | [phone] | [place] [address] | | | katja | | | 9 (Home) | | + +--------+ +--------+ + +"
--- OUTSIDE RECORDS SUMMARY | ~2019-09-28 | XMS | Encounter Summary ---
Demographics + + + | Address | [address] | | | [place] [address] | + + + | Home Phone | | + + + | Preferred Language | Unknown | + + + | Marital Status | | + + + | Taoism Affiliation | Unknown | + + + | Race | Unknown | + + + | Ethnic Group | Unknown | + + + Author + + + | Author | [facility] | | | and [place] | + + + | Organization | [facility] | | | and [place] | + + + | Address | Unknown | + + + | Phone | Unavailable | + + + Care Team Providers + +------+ + | Care Senior Interactive Developer Name | Role | Phone | [...] | | | | [address] | [place] [address] | | | | | [place] [address] | | | | | | [phone] | | | +--------+ + + + [...] this encounter Results DORENE Digital Screening Bilateral (03/13/2017 12:00 AM PST) [...]
--- OUTSIDE RECORDS SUMMARY | ~2019-09-28 | XMS | Encounter Summary ---
Demographics + + + | Address | [address] | | | [place] [address] | + + + | Home Phone | | + + + | Preferred Language | Unknown | + + + | Marital Status | | + + + | Oriental Orthodox Affiliation | Unknown | + + + | Race | White | + + + | Ethnic Group | Not or | + + + Author + + + | Author | [facility] | + + + | Organization | [facility] | + + + | Address | Unknown | + + + | Phone | Unavailable | + + + Support + + + + + | Name | Relationship | Address | Phone | + + + + + | Isidro Barth | ECON | [address] | | | | | [place] | | | | | [address] | | + + + + + Care Team Providers + +------+ + | Care Adjunct Sociology Professor Name | Role | Phone | + +------+ + | Luke Guadarrmaa MD | PCP | | + +------+ [...] rosacea | | 2013 | Visit | [place]/Ophthalmol | MD Farzana | (Primary Dx) | | | | blakey at [facility] [address] | | | | | | [address] [facility] for | | | | | | Health and Healing, | | | | | | Building | | | | | | Floor [place], [place] | | | | | | [address] | | | | | | [phone] | | | +--------+---------+ + + + [...] HPI: 57 y.o. year old female from [place] : Patient presents with: Comprehensive eye examination Eyes are red and irritated. Had tear duct plugs inserted last week by [place] doctor. Eyes aren't burning now, but are [...] the past week or so, once to [facility] e a day. Tobacco use: reports [...] acuity, pupils, EOMs, CVF and IOP. See [facility] ophthalmology module for exam information. Impression: Ocular [...] IOP, non-dilated Chas Cat MD Ophthalmology Resident [facility] Attending of record for this encounter is Dr. Luke Blank MD documented in this encounter Plan of Treatment Not on filedocumented as of this encounter Visit Diagnoses + + | Diagnosis | + + | Ocular rosacea - Primary Rosacea | + + documented in this encounter"
--- OUTSIDE RECORDS SUMMARY | ~2019-09-28 | XMS | Clinical Summary ---
Demographics + + + | Address | [address] | | | [place] [address] | + + + | Home Phone | | + + + | Preferred Language | Unknown | + + + | Marital Status | | + + + | Scientologist Affiliation | Unknown | + + + | Race | Unknown | + + + | Ethnic Group | Unknown | + + + Author + + + | Author | [facility] | | | and [place] | + + + | Organization | [facility] | | | and [place] | + + + | Address | Unknown | + + + | Phone | Unavailable | + + + Care Team Providers + +------+ + | Care Heating Worker Name | Role | Phone | + [...] + + + + | Overview: VIKFlorinda [id number] Decision | + + +---------+---+ | ANXIETY [...] Patient | Explanation | | | | Cashier Host/Hostess | | + + + + + | Power of | | | | | Pediatric Clinical Nurse Specialist | | | | + + + + + | Advance | | | | | Directive | | | | + + + + +
--- OUTSIDE RECORDS SUMMARY | ~2019-09-28 | XMS | Encounter Summary ---
Demographics + + + | Address | [address] | | | [place] [address] | + + + | Home Phone | | + + + | Preferred Language | Unknown | + + + | Marital Status | | + + + | Judaism Affiliation | Unknown | + + + | Race | Unknown | + + + | Ethnic Group | Unknown | + + + Author + + + | Author | [facility] | | | and [place] | + + + | Organization | [facility] | | | and [place] | + + + | Address | Unknown | + + + | Phone | Unavailable | + + + Care Team Providers + +------+ + | Care Tenter Frame Operator Name | Role | Phone | [...] | | | | [address] | [place] [address] | | | | | [place] [address] | | | | | | [phone] | | | +--------+ + + + [...]
--- OUTSIDE RECORDS SUMMARY | ~2019-09-28 | XMS | Encounter Summary ---
Demographics + + + | Address | [address] | | | [place] [address] | + + + | Home Phone | | + + + | Preferred Language | Unknown | + + + | Marital Status | | + + + | Islam Affiliation | Unknown | + + + | Race | Unknown | + + + | Ethnic Group | Unknown | + + + Author + + + | Author | [facility] | | | and [place] | + + + | Organization | [facility] | | | and [place] | + + + | Address | Unknown | + + + | Phone | Unavailable | + + + Care Team Providers + +------+ + | Care Laundry Clerk Name | Role | Phone | + [...] | | | | [address] | [place] [address] | | | | | [place] [address] | | | | | | [phone] | | | +--------+ + + + [...]
--- OUTSIDE RECORDS SUMMARY | ~2019-09-28 | XMS | Encounter Summary ---
Demographics + + + | Address | [address] | | | [place] [address] | + + + | Home Phone | | + + + | Preferred Language | Unknown | + + + | Marital Status | | + + + | Uatsdin Affiliation | Unknown | + + + | Race | Unknown | + + + | Ethnic Group | Unknown | + + + Author + + + | Author | [facility] | | | and [place] | + + + | Organization | [facility] | | | and [place] | + + + | Address | Unknown | + + + | Phone | Unavailable | + + + Care Team Providers + +------+ + | Care Roll Picker Name | Role | Phone | + +------+ + PCP | Unavailable | + +------+ + Encounter Details +--------+ + + + + | Date | Type | Department | Care Team | Description | +--------+ + + + + | 06/19/ | Hospital | [facility] | Paul Poole, | | | 1997 - | Encounter | [facility] | MD [address] [place] [address] | | | | | [facility] [address] | | | 06/22/ | | Merrick Dejesus, | [place] [address] | | | 1999 | | [place] [address] | [phone] | | | | | [phone] | | | +--------+ + + + [...]
--- OUTSIDE RECORDS SUMMARY | ~2019-09-28 | XMS | Encounter Summary ---
Demographics + + + | Address | [address] | | | [place] [address] | + + + | Home Phone | | + + + | Preferred Language | Unknown | + + + | Marital Status | | + + + | Nondenominational Affiliation | Unknown | + + + | Race | Unknown | + + + | Ethnic Group | Unknown | + + + Author + + + | Author | [facility] | | | and [place] | + + + | Organization | [facility] | | | and [place] | + + + | Address | Unknown | + + + | Phone | Unavailable | + + + Care Team Providers + +------+ + | Care Senior Control Systems Engineer Name | Role | Phone | [...] | | | | | [address] [facility] [address] | | | | | | [place], [place] | | | | | | [address] | | | | | | [phone] | | | +--------+ + + + [...]
[~2019-09-28 07:53] MED LIST changes: +PEPCID20 MG PO
--- OUTSIDE RECORDS SUMMARY | 2019-09-28 07:56 | XMS ---
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 Marily has no Care Guidelines for this patient. Alicia VISIT COUNT (12 MO.) [address] [facility] TOTAL 2 NOTE: Visits indicate total known visits. ED/C VISIT TRACKING (12 MO.) 09/28/2019 07:54 [facility] [place] TYPE: Emergency COMPLAINT: - SKIN PROBLEM/ POSSIBLE SHINGLES 09/08/2019 10:[address] 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
[2019-09-28] MEDS ORDERED: VALACYCLOVIR1000 MG PO (08:44)
== END 2019-09-28 08:50 | disposition home or self-care (01) ==
LOC: ED 07:53
DX: B02.9 Zoster without complications (principal); K21.9 Gastro-esophageal reflux disease without esophagitis; F41.9 Anxiety disorder, unspecified; E03.9 Hypothyroidism, unspecified; Z79.899 Other long term (current) drug therapy
CPT/HCPCS: 99283

== ENCOUNTER 2021-02-25 00:50 | Emergency (ER) | payer MEDICARE, OTHER ==
[~2021-02-25] VITALS: Ht 172.7 cm; Wt 86.6 kg
[~2021-02-25 00:50] MED LIST changes: +VALACYCLOVIR1000 MG PO
--- OUTSIDE RECORDS SUMMARY | 2021-02-25 00:52 | XMS ---
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 Care History Medical/Surgical 09/30/2019 [facility] Scheduled visit with Dr. Greene on 09/30/2019 [facility] - Patient is currently established with [facility]. If patient is seen in the ED during business hours. Please contact CHWs at [facility]. Care Recommendation: If this patient has had 5 or more Emergency Department visits in the last 12 months.\T\nbsp; Patient will require education on the scope and purpose of the ED as an acute care provider not a Primary Care Provider and should not be utilized for chronic conditions.\T\nbsp; These are guidelines and the provider should exercise clinical judgment when providing care. E.D. VISIT COUNT (12 MO.) 1 [facility] TOTAL 1 NOTE: Visits indicate total known visits. ED/UCC VISIT TRACKING (12 MO.) 02/25/2021 00:51 [facility] [place] TYPE: Emergency COMPLAINT: - URINE PROBLEM INPATIENT VISIT TRACKING (12 MO.) No inpatient visits to display in this time frame [email or web address]
[2021-02-25] MEDS ORDERED: MACROBID 100 M100 MG PO (01:26)
[2021-02-25] MEDS ORDERED: PYRIDIUM200 MG PO (01:26)
[2021-02-26] MEDS ORDERED: FAMOTIDINE40 MG PO (06:28)
[2021-02-26] MEDS ORDERED: RESTASIS1 DROP OD (06:29)
== END 2021-02-25 01:45 | disposition home or self-care (01) ==
LOC: ED 00:50
DX: N39.0 Urinary tract infection, site not specified (principal); K21.9 Gastro-esophageal reflux disease without esophagitis; E03.9 Hypothyroidism, unspecified; Z79.899 Other long term (current) drug therapy
CPT/HCPCS: 81001; 87088; 99283

== ENCOUNTER 2021-02-26 06:05 | Day surgery (SDC) | payer MEDICARE, OTHER ==
[~2021-02-26] VITALS: Ht 172.7 cm; Wt 89.1 kg
[~2021-02-26 06:05] MED LIST changes: +MACROBID 100 M100 MG PO; +PYRIDIUM200 MG PO
[2021-02-26] MEDS ORDERED: FAMOTIDINE40 MG PO (06:28)
[2021-02-26] MEDS ORDERED: RESTASIS1 DROP OD (06:29)
--- NOTE | 2021-02-26 08:40 | NUR ---
02/26/21 0840 Mya Warren 0835 PATIENT ARRIVES TO PACU AWAKE BUT DROWSY. RESP EVEN AND UNLABORED, NC AT 2 LITERS. PATIENT DENIES PAIN OR NAUSEA.
--- NOTE | 2021-02-26 09:19 | NUR ---
PT IS ALERT, ORIENTED AND SUPPORTED BY HER BONNY. PT HAS HAD BOTH SCOPES PREVIOUS, SEEMS INFORMED AND ALL QUESTIONS ASKED ANSWERED. PT DID HAVE REQUEST FOR PRAYER. BONNY WILL REMAIN FOR DC. WILL FOLLOW NEEDED
--- NOTE | 2021-02-27 15:47 | OR ---
[facility] [address] [place] [address], [place] [address] Signed DATE OF OPERATION: 02/26/2021 SURGEON: Semaj Pyle MD PREOPERATIVE DIAGNOSES: 1. Longstanding gastroesophageal reflux, well controlled on medication; recent epigastric pain issue, resolving. 2. History of colon polyps. POSTOPERATIVE DIAGNOSES: 1. Benign proximal gastric polyps. No evidence of esophagitis, gastritis or ulcer. 2. Diverticular change of sigmoid and small polyp at 60 cm (excised). PROCEDURES: 1. Esophagogastroduodenoscopy with biopsy. 2. Total colonoscopy to cecum with cold morcellation and excision of small polyp. ANESTHESIA: Intravenous sedation, fentanyl 200 mcg and Versed 12 mg total. INDICATION: This 65-year-old white woman is a patient of Dr. Greene and known to me from the past. She had an episode of significant epigastric pain over the Geo holidays and has long-standing known reflux disease for which she generally takes a PPI medication occasionally supplement that with H2 ted, Pepcid. Additionally, she has had history of polyps. She has no rectal bleeding, diarrhea, or constipation. Given her abdominal pain and ambiguity of her symptoms, upper endoscopy and colonoscopy has been recommended. The risks of bleeding, infection, and perforation related to both procedures were reviewed with her, she understands and wished to proceed. FINDINGS: Upper endoscopy showed normal vocal cords and esophagus. The stomach itself had benign gastric polyps proximally. There was no evidence of esophagitis and no hiatal hernia. Duodenum was normal. CLOtest was negative 30 minutes post procedure. On colonoscopy, the prep was quite good. Complete colonoscopy was undertaken to the cecum without question with full intubation of the cecum. There were diverticula of the sigmoid colon and a small polyp at 60 cm which was excised with cold morcellation technique. Electronically Signed By: SEMAJ PYLE MD 02/27/21 1547 PATIENT NAME: TRAVON HELMS OPERATIVE REPORT DATE OF : 51 REPORT #: [id number] PHYSICIAN: SEMAJ PYLE MD PCP: JOHN HUNTER MD REPORT IS CONFIDENTIAL AND NOT TO BE RELEASED WITHOUT AUTHORIZATION [facility] [address] [place] [address], [place] [address] Signed DESCRIPTION OF PROCEDURE: The patient was brought to the endoscopy suite and placed in lateral decubitus position, given lidocaine hypopharyngeal anesthesia. She was given intravenous sedation to the point of slurred speech and nystagmus with full cardiopulmonary monitoring. A bite block was placed. An Olympus video upper endoscope was passed in the hypopharynx. Next, the vocal cords appeared normal. Scope was advanced to the esophagus throughout its length it was normal. Upon entry to the stomach rugal folds were found to be normal. Antral motility normal. Pylorus normal. Scope was passed through into the duodenum, which was also normal. Biopsies were taken there to assess for celiac disease. The scope was withdrawn. Biopsies taken of the antrum for both PAM and pathologic testing. Retroflexed view was undertaken showing a surprisingly good flap valve. No sign of hiatal hernia. Proximally, the stomach had a flat hyperplastic appearing polyps, likely related to PPI use long-term, several of them were biopsied. The scope was straightened and withdrawn. Biopsies taken of normal-appearing distal esophagus and the normal-appearing midesophagus as well. Plans were then made for colonoscopy. Additional sedation was given. Digital rectal examination was performed which was normal. An Olympus video colonoscope was passed in the rectum and manipulated throughout the colon ultimately intubating the cecum itself. The ileocecal valve and appendiceal orifice were normal. The scope was withdrawn from that point and examination throughout showed no sign of abnormality until 60 cm from the anal verge, where a small flat polyp was noted. It is uncertain if this was truly an adenomatous polyp or not. It was completely ablated with multiple biopsies using the morcellation device. The scope was further withdrawn. Diverticular changes were seen in the sigmoid. Retroflexed view of the rectum was normal. Scope was removed. The patient was taken to recovery room in good condition. CONCLUDING DIAGNOSES: 1. Normal-appearing esophagus and stomach and duodenum except for a benign gastric polyps. 2. Diverticulosis of colon polyp at 60 cm. PLAN: Recommend high-fiber diet. Continued use of current regimen of PPI and H2 ted as necessary for symptom control of reflux disease. Repeat colonoscopy in 5 to 7 years. She will return to the ongoing care of Dr. Greene. Semaj Pyle MD Electronically Signed By: SEMAJ PYLE MD 02/27/21 1547 PATIENT NAME: TRAVON HELMS OPERATIVE REPORT DATE OF : 51 REPORT #: [id number] PHYSICIAN: SEMAJ PYLE MD PCP: JOHN HUNTER MD REPORT IS CONFIDENTIAL AND NOT TO BE RELEASED WITHOUT AUTHORIZATION [address] [address] Signed /MODL /[id number] cc: Sherif Greene MD Copies: SHERIF GREENE MD ~ Electronically Signed By: SEMAJ PYLE MD 02/27/21 1547 PATIENT NAME: TRAVON HELMS OPERATIVE REPORT DATE OF : 51 REPORT #: [id number] PHYSICIAN: SEMAJ PYLE MD PCP: JOHN HUNTER MD REPORT IS CONFIDENTIAL AND NOT TO BE RELEASED WITHOUT AUTHORIZATION
--- NOTE | 2021-03-01 10:04 | PATH ---
[facility] [address] [place], [place] [address] Signed SPECIMEN(S): A DUODENAL BULB BIOPSY SPECIMEN(S): B ANTRUM/PYLORUS BIOPSY SPECIMEN(S): C PROXIMAL GASTRIC POLYP SPECIMEN(S): D LOW ESOPHAGEAL BIOPSY SPECIMEN(S): E MID ESOPHAGEAL BIOPSY SPECIMEN(S): F POLYP AT 60 CM SPECIMEN SOURCE: A. DUODENAL BULB BIOPSY B. ANTRUM/PYLORUS BIOPSY C. PROXIMAL GASTRIC POLYP D. LOW ESOPHAGEAL BIOPSY E. MID ESOPHAGEAL BIOPSY F. POLYP AT 60 CM CLINICAL HISTORY: Esophagogastroduodenoscopy, colonoscopy. FINAL PATHOLOGIC DIAGNOSIS: A. Duodenum, bulb, biopsy: - Duodenal mucosa with no histopathologic abnormality. - Negative for increased intraepithelial lymphocytes or villous blunting. - Negative for dysplasia or malignancy. B. Stomach, antrum/pylorus, biopsy: - Antral mucosa with no histopathologic abnormality. - Negative for Helicobacter organisms on HE stain. - Negative for dysplasia or malignancy. C. Stomach, proximal, polyp, polypectomy: - Cardia type gastric mucosa with mild chronic, inactive gastritis. - Negative for Helicobacter organisms on HE stain. - Negative for dysplasia or malignancy. - See comment. D. Esophagus, lower, biopsy: - Squamous mucosa with no histopathologic abnormality. - Negative for increased intraepithelial eosinophils. - Negative for intestinal metaplasia, dysplasia, or malignancy. E. Esophagus, mid, biopsy: - Squamous mucosa with mild chronic inflammation and reactive epithelial changes, suggestive of reflux esophagitis. - Negative for increased intraepithelial eosinophils. PATIENT NAME: DUFF,[facility] RECORD #: [id number] PATHOLOGY DATE OF : 51 REPORT #: [id number] PHYSICIAN: JESSENIA WASHINGTON PCP: JOHN HUNTER MD REPORT IS CONFIDENTIAL AND NOT TO BE RELEASED WITHOUT AUTHORIZATION [facility] [address] [place], [place] [address] Signed - Negative for intestinal metaplasia, dysplasia, or malignancy. F. Colon, polyp at 60 cm, polypectomy: - Fragments of tubular adenoma. - Negative for high-grade dysplasia or malignancy. NAL:cml:C2NR MICROSCOPIC EXAMINATION: Histologic sections of all submitted blocks are examined by light microscopy. These findings, together with the gross examination, support the pathologic diagnosis. GROSS DESCRIPTION: Six specimens are received in six containers, labeled "SD." A. The specimen, labeled "SD, duodenal bulb biopsy," is received in formalin and consists of two cevallos soft tissue fragments that measure 0.1-0.2 cm in greatest dimension. The specimen is entirely submitted in cassette (A1). B. The specimen, labeled "SD, antrum biopsy," is received in formalin and consists of one cevallos soft tissue fragment that measures 0.1 cm in greatest dimension. The specimen is entirely submitted in cassette (B1). C. The specimen, labeled "SD, proximal gastric polyp," is received in formalin and consists of one cevallos soft tissue fragment that measures 0.2 cm in greatest dimension. The specimen is entirely submitted in cassette (C1). D. The specimen, labeled "SD, lower esophagus biopsy," is received in formalin and consists of one cevallos soft tissue fragment that measures 0.1 cm in greatest dimension. The specimen is entirely submitted in cassette (D1). E. The specimen, labeled "SD, mid esophagus biopsy," is received in formalin and consists of two cevallos soft tissue fragments that measure 0.3-0.5 cm in greatest dimension. The specimen is entirely submitted in cassette (E1). F. The specimen, labeled "SD, colon polyp at 60 cm," is received in formalin and consists of four cevallos soft tissue fragments that measure 0.1-0.2 cm in greatest dimension. The specimen is entirely submitted in cassette (F1). JS (under the direct supervision of a pathologist) The Gross Description was prepared using a voice recognition system. The report was reviewed for accuracy; however, sound-alike word errors, addition and/or deletions may occur. If there is any PATIENT NAME: TRAVON HELMS PATHOLOGY DATE OF : 51 REPORT #: [id number] PHYSICIAN: JESSENIA WASHINGTON PCP: JOHN HUNTER MD REPORT IS CONFIDENTIAL AND NOT TO BE RELEASED WITHOUT AUTHORIZATION [address] [address] Signed question about this report, please contact Client Services. PERFORMING LABORATORY: The technical component was performed by [facility], [address] [place] [id number] (Sewer System Supervisor: Mayda Dunn MD; CLIA# [id number]). [facility], [address] [address] (CLIA# [id number]). Diagnostician: Annalisa Fong MD Pathologist Electronically Signed 03/01/2021 Copies: ~ PATIENT NAME: TRAVON HELMS PATHOLOGY DATE OF : 51 REPORT #: [id number] PHYSICIAN: JESSENIA WASHINGTON PCP: JOHN HUNTER MD REPORT IS CONFIDENTIAL AND NOT TO BE RELEASED WITHOUT AUTHORIZATION
== END 2021-02-26 09:25 | disposition home or self-care (01) ==
LOC: DS 06:05 → OPS 06:05 → DS 06:45 → OPS 09:25 → DS 09:30
PROVIDERS: ATTEND Surgery
PROC: 0DB28ZX Excision of Middle Esophagus, Via Natural or Artificial Opening Endoscopic, Diagnostic (ICD-10-PCS; 2021-02-26)
PROC: 0DB38ZX Excision of Lower Esophagus, Via Natural or Artificial Opening Endoscopic, Diagnostic (ICD-10-PCS; 2021-02-26)
PROC: 0DBE8ZX Excision of Large Intestine, Via Natural or Artificial Opening Endoscopic, Diagnostic (ICD-10-PCS; 2021-02-26)
PROC: 0DB98ZX Excision of Duodenum, Via Natural or Artificial Opening Endoscopic, Diagnostic (ICD-10-PCS; principal; 2021-02-26 06:45)
PROC: 0DB68ZX Excision of Stomach, Via Natural or Artificial Opening Endoscopic, Diagnostic (ICD-10-PCS; 2021-02-26 06:45)
DX: K21.00 Gastro-esophageal reflux disease with esophagitis, without bleeding (principal); K57.30 Diverticulosis of large intestine without perforation or abscess without bleeding; D12.6 Benign neoplasm of colon, unspecified; K29.50 Unspecified chronic gastritis without bleeding; E66.9 Obesity, unspecified; Z68.29 Body mass index [BMI] 29.0-29.9, adult; Z80.0 Family history of malignant neoplasm of digestive organs
CPT/HCPCS: 99153; G0500; J2250; J3010; J7121

== ENCOUNTER 2021-10-23 08:26 | Emergency (ER) | payer MEDICARE, OTHER ==
[~2021-10-23] VITALS: Ht 172.7 cm; Wt 88.9 kg
[~2021-10-23 08:26] MED LIST changes: +FAMOTIDINE40 MG PO
--- OUTSIDE RECORDS SUMMARY | 2021-10-23 08:28 | XMS ---
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 Care History Medical/Surgical 02/25/2021 [facility] - Patient is currently established with [facility]. If patient is seen in the ED during business hours. Please contact CHWs at [facility]. Care Recommendation: If this patient has had 5 or more Emergency Department visits in the last 12 months. Patient will require education on the scope and purpose of the ED as an acute care provider not a Primary Care Provider and should not be utilized for chronic conditions. These are guidelines and the provider should exercise clinical judgment when providing care. 02/25/2021 [facility] Patient cancelled appt for 03/09/[address] Wood. No follow ups scheduled at this time. 09/30/2019 [facility] Scheduled visit with Dr. Deluna on EJovanny VISIT COUNT (12 MO.) [address] [facility] TOTAL 3 NOTE: Visits indicate total known visits. ED/UCC VISIT TRACKING (12 MO.) 10/23/2021 08:27 [facility] [place] TYPE: Emergency COMPLAINT: - UTI SYMPTOMS 08/06/2021 19:21 [facility] [place] TYPE: Emergency COMPLAINT: - SKIN PROBLEM DIAGNOSES: - Gastro-esophageal reflux disease without esophagitis - Zoster without complications 02/25/2021 00:[address] 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
[2021-10-23] MEDS ORDERED: NITROFURANTOIN50 MG PO (08:38)
[2021-10-23] MEDS ORDERED: MACROBID 100 M100 MG PO (09:08)
== END 2021-10-23 09:17 | disposition home or self-care (01) ==
LOC: ED 08:26
DX: N39.0 Urinary tract infection, site not specified (principal); K21.9 Gastro-esophageal reflux disease without esophagitis; E03.9 Hypothyroidism, unspecified; Z79.899 Other long term (current) drug therapy
CPT/HCPCS: 99283

== ENCOUNTER 2022-07-07 15:12 | Emergency (ER) | payer MEDICARE, OTHER ==
[~2022-07-07] VITALS: Ht 172.7 cm; Wt 92.5 kg
[~2022-07-07 15:12] MED LIST changes: +NITROFURANTOIN50 MG PO
--- OUTSIDE RECORDS SUMMARY | 2022-07-07 15:48 | XMS ---
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 Care History Medical/Surgical 02/25/2021 [facility] - Patient is currently established with [facility]. If patient is seen in the ED during business hours. Please contact CHWs at [facility]. Care Recommendation: If this patient has had 5 or more Emergency Department visits in the last 12 months. Patient will require education on the scope and purpose of the ED as an acute care provider not a Primary Care Provider and should not be utilized for chronic conditions. These are guidelines and the provider should exercise clinical judgment when providing care. 02/25/2021 [facility] Patient cancelled appt for 03/09/[address] Wood. No follow ups scheduled at this time. 09/30/2019 [facility] Scheduled visit with Dr. Deluna on EJovanny VISIT COUNT (12 MO.) [address] [facility] TOTAL 3 NOTE: Visits indicate total known visits. 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
[2022-07-07] MEDS ORDERED: TRAZODONE HCL50 MG PO (19:43)
[2022-07-07 21:32] VITALS: BP 134/102
== END 2022-07-07 21:32 | disposition home or self-care (01) ==
LOC: ED 15:12
DX: M71.21 Synovial cyst of popliteal space [Baker], right knee (principal); K21.9 Gastro-esophageal reflux disease without esophagitis; E03.9 Hypothyroidism, unspecified; Z88.2 Allergy status to sulfonamides; Z88.1 Allergy status to other antibiotic agents; Z79.899 Other long term (current) drug therapy
CPT/HCPCS: 73560; 93971; 99284-25

== ENCOUNTER 2024-05-12 04:58 | Emergency (ER) | payer MEDICARE, OTHER ==
[~2024-05-12] VITALS: Ht 172.7 cm; Wt 91.3 kg
[~2024-05-12 04:58] MED LIST changes: +TRAZODONE HCL50 MG PO
[2024-05-12 05:25] LABS: BILIRUBIN, URINE NEGATIVE (negative); BLOOD/HGB, URINE LARGE (Negative); KETONE, URINE NEGATIVE (Negative); LEUK ESTERASE, URINE SMALL (negative); NITRITE, URINE NEGATIVE (negative)
[2024-05-12 05:43] LABS: BACTERIA, URINE 1+ /hpf (negative); CASTS, URINE NONE SEEN \\lpf; COLLECTION TYPE, URINE CLEAN CATCH; CRYSTALS, URINE NONE SEEN (0-1+); EPITHELIAL CELLS, URINE SQUAMOUS 1+ /lpf (0-1+); RED BLOOD CELLS, URINE >50 /hpf (0-5); REFLEX CULTURE, URINE Yes (No); WHITE BLOOD CELLS, URINE 21-40 /HPF (0-5)
[2024-05-12] MEDS ORDERED: NITROFURANTOIN100 M1 PO (05:45)
[2024-05-12] MEDS ORDERED: NITROFURANTOIN MONOHYD MACROCR 100 MG CAP PO ONE (05:45)
[2024-05-12] MEDS ORDERED: TRETINOIN20 G1 TOP (05:50)
[2024-05-12 05:59] VITALS: BP 144/85
== END 2024-05-12 05:59 | disposition home or self-care (01) ==
LOC: ED 04:58
PROVIDERS: Internal Medicine
DX: N30.11 Interstitial cystitis (chronic) with hematuria (principal); K21.9 Gastro-esophageal reflux disease without esophagitis; Z88.2 Allergy status to sulfonamides
CPT/HCPCS: 81001; 87088; 99283